=== PATIENT | female | born 1965 | race Caucasian/White ===

== ENCOUNTER 2016-07-18 14:42 | Observation (INO) | payer OTHER ==
[2016-07-18] MEDS ORDERED: KETOROLAC TROMETHAMINE 30 MG/ML VIAL IV ONE (15:08)
[2016-07-18] MEDS ORDERED: diphenhydrAMINE HCL 50 MG/ML VIAL IV ONE (15:08)
[2016-07-18] MEDS ORDERED: METHYLPREDNISOLONE SOD SUCC/PF 40 MG/ML VIAL IV ONE (15:09)
[2016-07-18] MEDS ORDERED: NORMAL SALINE 1,000 ML IV ONE ×2 (15:11→16:47)
--- NOTE | 2016-07-18 15:11 | ERNOTE ---
Medical Problem HPI - Narrative Date of Service: 07/18/16 - General Chief Complaint: General Assessment Time Seen by Provider: 07/18/16 14:54 Source: patient Exam Limitations: no limitations - Immun/Allergies/Home Medications Immunizations: IMMUNIZATION HX Immunizations Up to Date Yes Allergies/Adverse Reactions: Allergies gabapentin Allergy (Verified 07/18/16 14:51) Home Medications: HOME MEDICATIONS HYDROcodone/ACETAMINOPHEN [[place] 5-325] 1 tab PO DAILY PRN 07/18/16 [Last Taken Unknown] Ibuprofen [Motrin] 800 mg PO TID PRN 07/18/16 [Last Taken Unknown] LORazepam [Ativan] 0.5 mg PO Q12H PRN 07/18/16 [Last Taken Unknown] Omeprazole 40 mg PO DAILY 07/18/16 [Last Taken Unknown] Oxycodone HCl [Oxycontin] 30 mg PO BID PRN 07/18/16 [Last Taken Unknown] Pregabalin [Lyrica] 100 mg PO TID 07/18/16 [Last Taken Unknown] Simvastatin [Zocor] 40 mg PO HS 07/18/16 [Last Taken Unknown] buPROPion HCL [Wellbutrin] 300 mg PO DAILY 07/18/16 [Last Taken Unknown] traZODone HCL [Desyrel] 100 mg PO HS PRN 07/18/16 [Last Taken Unknown] - History of Present History Narrative: Pt presents to the ED with c/o drowsiness and face feels hot. Pt states she took her Oxycontin this morning due to pain and that feels like a MS flareup. Pt states she had one 6 months ago and it feels similar; however, this time she has a headache with it. Pt rates headache 7/10. Pt states light and noise aggravate her headache. Pt denies any relieviating factors. Pt states this started this morning. Pt also states she has blurred vision. Date (Duration): 07/18/16 Timing: constant Severity: mild Review of Systems - Review of Systems Constitutional: Present: weakness. Absent: recent illness, fever, chills, decreased activity level EYE: Present: blurred vision, vision changes. Absent: eye pain ENT: Present: no symptoms reported. Absent: ear pain, nose congestion, nasal drainage, sore throat Respiratory: Present: no symptoms reported. Absent: shortness of breath, cough , wheezing Cardiology: Present: no symptoms reported. Absent: chest pain, palpitations Gastrointestinal/Abdominal: Present: no symptoms reported. Absent: nausea, vomiting, diarrhea, constipation, abdominal pain Genitourinary: Absent: no symptoms reported, frequency, pain Musculoskeletal: Present: other - generalized pain Skin: Present: no symptoms reported. Absent: rash, change in color Neurological: Present: headache - rates pain 7/10, weakness, numbness, tingling - numbness and tingling in arms which is normal for patient. Absent: dizziness/ light-headedness, seizure Endocrine: Present: no symptoms reported. Absent: excessive sweating, flushing , intolerance to heat, intolerance to cold Hematologic/Lymphatic: Present: no symptoms reported. Absent: easy bruising, easy bleeding Psych: Absent: anxiety, depressed All Other Systems: All systems neg except as marked - Patient's Past Medical History Patient History - Medical: Chronic Pain, Fibromyalgia, Other Patient History - Cardiac/Respiratory: Hyperlipidemia Patient History - Cancer: No Hx of Cancer Patient History - Surgical Procedures: Back Surgery, Hysterectomy, Other - Social History Smoking Status: Current every day smoker Have you smoked in the past 12 months: Yes - Immunizations Immunizations Up to Date: Yes Physical Exam - Physical Exam General Appearance: Present: no apparent distress, sleeping/easy to arouse. Absent: alert Eye Exam: Normal inspection: bilateral, PERRL: bilateral, EOMI: bilateral Ears, Nose, Throat: Present: normal ENT inspection. Absent: hearing decreased, nasal congestion, sinus pain/drainage Neck: Present: normal inspection, nontender, supple, full range of motion. Absent: limited range of motion Respiratory: Present: no respiratory distress, normal breath sounds, no accessory muscle use, chest nontender, lungs clear. Absent: crackles, rhonchi, stridor, wheezing Cardiovascular/Chest: Present: regular rate, rhythm, no murmur, normal peripheral pulses. Absent: tachycardia, bradycardia, irregularly irregular Gastrointestinal/Abdominal: Present: normal bowel sounds, nontender, nondistended, soft, no organomegaly. Absent: distended, guarding Back Exam: Present: normal inspection, normal range of motion Extremity Exam: Present: normal inspection, non-tender, normal range of motion, no edema Neurological Exam: Present: oriented, normal mood/affect, no motor/sensory deficits, other - lethargic Skin Exam: Present: normal color, warm/dry. Absent: skin rash Lymphatic Exam: Present: no adenopathy ED Progress - Date and Time Seen: Date and Time: 07/18/16 19:[address] Bolanos and we will admit here and he will have dr og follow up tomorrow but will give our hospitalist orders tonight. Discussed with Dr Greene and she accepts admission of pt. Gave report to [facility] for transfer of care. - Vital Signs Patient's Vital Signs:: I have reviewed the patient's vital signs. Vital Signs: Vital Signs 07/18/16 14:46 Temperature 36.5 C Pulse Rate 72 Respiratory 14 Rate Blood Pressure 114/67 O2 Sat by Pulse 98 Oximetry - EKG EKG: NSR, other - IVCD EKG read: Interp. by me EKG Comments: no acute - Progress/Reassessment Chief Complaint: General Assessment Departure - Departure Clinical Impression: Exacerbation of multiple sclerosis Disposition: [facility] Condition: Serious
--- OUTSIDE RECORDS SUMMARY | 2016-07-18 15:14 | XMS REPORT | Continuity of Care Document ---
:1965 Author Organization [facility] ([facility]) Address [address] [place] [address] Phone [phone] Care Team Providers Name Role Phone Sathish Connolly Primary Care Provider [phone] Source Comments This disclosure is being made pursuant to the Care Everywhere program, applicable federal and state laws, and may not contain all informaitonavailable regarding this patient.[facility] ([facility]) Active Allergies and Adverse Reactions No Known Allergies Current Medications Prescription Sig. Disp. Refills Start Date End Date Status HYDROCODONE Take 1 Tab by Active BIT/ACETAMINOPHEN (VICODIN mouth 3 times PO) daily. ibuprofen 800 mg tablet Take 800 mg by Active mouth 3 times daily. cyclobenzaprine 10 mg Take 10 mg by Active tablet mouth 3 times daily as needed. OMEPRAZOLE PO Take 20 mg by Active mouth daily. traZODone 150 mg tablet Take 150 mg by Active mouth at bedtime. citalopram 40 mg tablet Take 40 mg by Active mouth daily. Active Problems Problem Noted Date Neck pain 10/03/2012 Social History Tobacco Use Types Packs/Day Years Used Date Current Every Day Smoker 1 30 Alcohol Use Drinks/Week oz/Week Comments No Last Filed Vital Signs Vital Sign Reading Time Taken Blood Pressure 113/75 10/03/2012 1:24 PM CDT Pulse 76 10/03/2012 1:24 PM CDT Temperature 37.3 C (99.1 F) 10/03/2012 1:24 PM CDT Respiratory Rate - - Height 1.702 m (5' 7.01") 10/03/2012 1:24 PM CDT Weight 79.742 kg (175 lb 12.8 oz) 10/03/2012 1:24 PM CDT Body Mass Index 27.53 10/03/2012 1:24 PM CDT Oxygen Saturation - - Plan of Care Health Maintenance Due Date Last Done Comments Hepatitis B Vaccine (1 of 3 - Primary Series) 1965 Tdap Vaccine 1978 Lipid Disorder Screening 1985 MMR Vaccine 1985 Td Vaccine 1985 Pneumococcal Vaccine (1 of 1 - PPSV23) 1986 Cervical Cancer Screening 1997 Mammogram 2007 Influenza Vaccine: Seasonal (#1) 12/06/2015 Results from Last 3 Months Not on file
[2016-07-18] MEDS ORDERED: diphenhydrAMINE HCL 50 MG/ML VIAL ONE (15:22)
[2016-07-18] MEDS ORDERED: METHYLPREDNISOLONE SOD SUCC/PF 40 MG/ML VIAL ONE (15:23)
[2016-07-18] MEDS ORDERED: KETOROLAC TROMETHAMINE 30 MG/ML VIAL ONE (15:23)
[2016-07-18 15:35] LABS: Hematocrit 42.4 % (37.0-47.0); Hemoglobin 14.3 gm/dL (12.5-16.0); Mean Corpuscular Hemoglobin 30.4 pg (27-31); Mean Corpuscular Hgb Conc 33.7 g/dl (32-36); Mean Platelet Volume 10.2 fl (6.0-9.5); Neutrophil # 3.1 K/mm3 (1.3-6.0); Neutrophil % 44.3 % (42-75.0); Platelet Count 171 K/mm3 (150-450); Red Blood Count 4.71 M/mm3 (4.2-5.4)
[2016-07-18 15:40] LABS: ALT 13 U/L (19-67); AST 10 U/L (0-48); Albumin * 3.5 gm/dl (3.4-5.0); Alkaline Phosphatase * 89 U/L (50-170); Anion Gap 11.9 mmol/L (6.8-13.8); Bilirubin, Total 0.3 mg/dL (0.0-1.1); Blood Urea Nitrogen 5 mg/dL (3-23); Ca. Corrected For Albumin 8.5 mg/dL (8.4-10.2); Calcium * 8.4 mg/dL (7.9-10.9); Chloride 104 mmol/L (97-106); Glucose * 133 mg/dL (70-110); Potassium 2.9 mmol/L (3.4-4.6); Sodium 143 mmol/L (132-142)
[2016-07-18] MEDS ORDERED: POTASSIUM CHLORIDE 20 MEQ TABLET.SA PO ONE (15:46)
[2016-07-18 15:53] LABS: Urine Bilirubin Negative (NEGATIVE); Urine Ketone Negative (NEGATIVE); Urine Nitrite Negative (NEGATIVE); Urine Protein Negative (NEGATIVE); Urine Specific Gravity 1.025 SP.GR. (1.005-1.010); Urine Urobilinogen Normal (NORMAL)
[2016-07-18 16:00] LABS: Urine Appearance Clear; Urine Blood 10 /ul (NEGATIVE); Urine Color Yellow
[2016-07-18 16:01] LABS: Urine Bacteria None Seen; Urine RBC None Seen /hpf (0-5); Urine WBC 0-5 /hpf (0-5)
[2016-07-18 16:01] LABS: Phosphorus 3.6 mg/dL (2.2-4.2)
[2016-07-18] MEDS ORDERED: POTASSIUM CHLORIDE 20 MEQ TABLET.SA ONE (16:10)
[2016-07-18] MEDS: POTASSIUM CHLORIDE 100 ML IV SCH ×2 (16:15→17:13)
[2016-07-18] MEDS ORDERED: HYDROCORTISONE SOD SUCCINATE 50 MG/ML VIAL IV ONE (16:47)
[2016-07-18] MEDS ORDERED: HYDROCORTISONE SOD SUCCINATE 50 MG/ML VIAL ONE (16:54)
--- OUTSIDE RECORDS SUMMARY | 2016-07-18 19:04 | XMS REPORT | Continuity of Care Document ---
:1965 Author Organization [facility] ([facility]) Address [address] [place] [address] Phone [phone] Care Team Providers Name Role Phone Sathish Connolly Primary Care Provider [phone] Source Comments This disclosure is being made pursuant to the Care Everywhere program, applicable federal and state laws, and may not contain all informaitonavailable regarding this patient.[facility] ([facility]) Active Allergies and Adverse Reactions No Known [...]
[2016-07-18] MEDS ORDERED: LORazepam 0.5 MG TABLET PO PRN (21:43)
[2016-07-18] MEDS ORDERED: traZODone HCL 50 MG TABLET PO PRN (21:43)
--- NOTE | 2016-07-18 23:01 | HP ---
Chief Complaint - Chief Complaint Date of Service: 07/18/16 Time of Service: 19:30 Chief Complaint: Fatigue and headache History of Present Illness: 51 years old female adm to the hospital from ER with reports of increased fatigue and headache. pt stated for the past 2-4 days she have been feeling increased fatigue than usual and think its an MS flare. She had similar s/s when she had her last flare a year ago. She has stopped taking Tecfidera for the past 3 months and have been waiting to pre-approved by insurance for a new medications. However, she has been taking home medications for her chronic pain consistently. In ER pt was bradycardic and hypotensive likely due to excessive narcotic use vs MS flare. Case discussed with pt neurologist Dr Bolanos, who initiated solumedrol 500mg IV Q day and repeat MRI tomorrow. PMH significant for Multiple Sclerosis, smoker, spinal stenosis anxiety and fibromyalgia. On adm pt denies plans to hurt self or other, no tingling, no numbness, muscle stiffness, bowel or bladder problems. Plan of care discussed with pt she verbalized understanding and agrees. - Patient's Past Medical History Patient History - Medical: Anxiety, Chronic Pain, Fibromyalgia, Other - spinal stenosis Patient History - Cardiac/Respiratory: Hyperlipidemia, Other - smoker Patient History - Cancer: No Hx of Cancer Patient History - Surgical Procedures: Back Surgery, Hysterectomy, Other - spinal fusion - Social History Living Situations: alone Abuse History: No History of abuse Psych History: Hx of Anxiety, Hx of Depression Smoking Status: Current every day smoker Cigarettes Packs Per Day: 1 - pack Have you smoked in the past 12 months: Yes Do you dip or chew tobacco: No Patient requests Smoking Cessation Consult: Yes Initiate information on Smoking Cessation: Yes Alcohol Use: none Drug Use: none - Immunizations Immunizations Up to Date: Yes Review Of Systems (GEN) - Review of Systems Generalized/Overall Review: Present: Fatigue EENTM: Present: No Symptoms Reported Respiratory: Present: Cough Cardiac: Present: No Symptoms Reported Abdominal: Present: No Symptoms Reported Genitourinary: Present: No Symptoms Reported Musculoskeletal: Present: Joint Pain Neurological: Present: Anxiety, Weakness Skin: Present: No Symptoms Reported Endocrine: Present: No Symptoms Reported Immunizations: IMMUNIZATION HX Immunizations Up to Date Yes Allergies/Adverse Reactions: Allergies Allergy/AdvReac Type Severity Reaction Status Date / Time gabapentin Allergy Verified 07/18/16 20:40 Home Medications: HOME MEDICATIONS HYDROcodone/ACETAMINOPHEN [[place] 5-325] 1 tab PO DAILY PRN 07/18/16 [Last Taken Unknown] Ibuprofen [Motrin] 800 mg PO TID PRN 07/18/16 [Last Taken Unknown] LORazepam [Ativan] 0.5 mg PO Q12H PRN 07/18/16 [Last Taken Unknown] Omeprazole 40 mg PO DAILY 07/18/16 [Last Taken Unknown] Oxycodone HCl [Oxycontin] 30 mg PO BID PRN 07/18/16 [Last Taken Unknown] Pregabalin [Lyrica] 100 mg PO TID 07/18/16 [Last Taken Unknown] Simvastatin [Zocor] 40 mg PO HS 07/18/16 [Last Taken Unknown] buPROPion HCL [Wellbutrin] 300 mg PO DAILY 07/18/16 [Last Taken Unknown] traZODone HCL [Desyrel] 100 mg PO HS PRN 07/18/16 [Last Taken Unknown] Exam - Exam Vital Signs: Vital Signs - Last Taken Temp 36.6 C 07/18/16 20:22 Pulse 62 07/18/16 20:22 Resp 20 07/18/16 20:22 BP 117/65 07/18/16 20:22 Pulse Ox 97 07/18/16 20:22 Constitutional: Present: Alert, Oriented x3, Cooperative, Well developed, No distress, Young, Looks Older than stated age ENT Exam: Present: moist mucous membranes Eye Exam: bilateral eye: PERRL Neck: Present: full range of motion Back Exam: Present: normal inspection Breasts: Present: Exam deferred Respiratory: Present: chest non-tender, no respiratory distress, no accessory muscle use, decreased breath sounds Cardiovascular/Chest: Present: normal peripheral pulses, regular rate, rhythm, no chest tenderness, no edema, no gallop Peripheral Pulses: dorsalis-pedis (R): 3+, dorsalis-pedis (L): 3+ Abdomen: Present: Normal bowel sounds, soft, nontender, nondistended, no rebound tenderness /Rectal: Present: Exam deferred Extremity: Present: normal range of motion, non-tender, normal inspection, no calf tenderness Skin Exam: Present: normal color, warm/dry, no cyanosis Neurologic: Present: oriented x 3 Appearance: Present: appropriate insight Eye contact: Present: cooperative, good eye contact Thoughts: Present: normal thought pattern Diagnostic Studies: Laboratory Results WBC 7.0 K/mm3 (4.0-10.5) 07/18/16 15:18 RBC 4.71 M/mm3 (4.2-5.4) 07/18/16 15:18 Hgb 14.3 gm/dL (12.5-16.0) 07/18/16 15:18 Hct 42.4 % (37.0-47.0) 07/18/16 15:18 MCV 90.0 fl (78-100) 07/18/16 15:18 MCH 30.4 pg (27-31) 07/18/16 15:18 MCHC 33.7 g/dl (32-36) 07/18/16 15:18 RDW 13.0 % (11.5-14.0) 07/18/16 15:18 Plt Count 171 K/mm3 (150-450) 07/18/16 15:18 MPV 10.2 fl (6.0-9.5) H 07/18/16 15:18 Immature Gran % (Auto) 0.10 % (0.001-0.429) 07/18/16 15:18 Immature Gran # (Auto) 0.01 K/mm3 (0.000-0.0310) 07/18/16 15:18 Neutrophils % 44.3 % (42-75.0) 07/18/16 15:18 Lymphocytes % 45.9 % (20-51) 07/18/16 15:18 Monocytes % 6.1 % (0.0-9) 07/18/16 15:18 Eosinophils % 2.6 % (0.0-3.0) 07/18/16 15:18 Basophils % 1.0 % (0.0-1.0) 07/18/16 15:18 Nucleated RBC % 0.0 k/mm3 (0-1) 07/18/16 15:18 Neutrophils # 3.1 K/mm3 (1.3-6.0) 07/18/16 15:18 Lymphocytes # 3.2 k/mm3 (1.5-3.5) 07/18/16 15:18 Monocytes # 0.4 k/mm3 (0.0-1.0) 07/18/16 15:18 Eosinophils # 0.2 k/mm3 (0.0-0.7) 07/18/16 15:18 Absolute Basophils 0.1 k/mm3 (0.0-0.1) 07/18/16 15:18 ESR 14 mm/hr (0-15) 07/18/16 15:18 Sodium 143 mmol/L (132-142) H 07/18/16 15:18 Plasma Sodium 144 mmol/L (130-142) H 07/18/16 15:18 Potassium 2.9 mmol/L (3.4-4.6) L 07/18/16 15:18 Chloride 104 mmol/L (97-106) 07/18/16 15:18 Carbon Dioxide 30.0 mmol/L (24-32.6) 07/18/16 15:18 Anion Gap 11.9 mmol/L (6.8-13.8) 07/18/16 15:18 BUN 5 mg/dL (3-23) 07/18/16 15:18 Creatinine 0.84 mg/dL (0.4-1.4) 07/18/16 15:18 Est GFR (Non-Af Amer) 77 mL/min (60-130) 07/18/16 15:18 BUN/Creatinine Ratio 6.0 (9.0-21.6) L 07/18/16 15:18 Random Glucose 133 mg/dL (70-110) H 07/18/16 15:18 Calcium 8.4 mg/dL (7.9-10.9) 07/18/16 15:18 Calcium Adj for Albumin 8.5 mg/dL (8.4-10.2) 07/18/16 15:18 Phosphorus 3.6 mg/dL (2.2-4.2) 07/18/16 15:18 Magnesium 2.0 mg/dL (1.2-2.8) 07/18/16 15:18 Total Bilirubin 0.3 mg/dL (0.0-1.1) 07/18/16 15:18 AST 10 U/L (0-48) 07/18/16 15:18 ALT 13 U/L (19-67) L 07/18/16 15:18 Alkaline Phosphatase 89 U/L (50-170) 07/18/16 15:18 C-Reactive Prot, Quant Less than 0.2 mg/dL (0.0-0.9) 07/18/16 15:18 Total Protein 7.0 gm/dL (6.2-8.2) 07/18/16 15:18 Albumin 3.5 gm/dl (3.4-5.0) 07/18/16 15:18 Urine Color Yellow 07/18/16 15:47 Urine Appearance Clear 07/18/16 15:47 Urine pH 6.0 pH (5.0-7.0) 07/18/16 15:47 Ur Specific [place] 1.025 SP.GR. (1.005-1.010) 07/18/16 15:47 Urine Protein Negative mg/dL (NEGATIVE) 07/18/16 15:47 Urine Glucose (UA) Negative mg/dL (NEGATIVE) 07/18/16 15:47 Urine Ketones Negative mg/dL (NEGATIVE) 07/18/16 15:47 Urine Blood 10 /ul (NEGATIVE) H 07/18/16 15:47 Urine Nitrate Negative (NEGATIVE) 07/18/16 15:47 Urine Bilirubin Negative mg/dl (NEGATIVE) 07/18/16 15:47 Urine Urobilinogen Normal EU/dl (NORMAL) 07/18/16 15:47 Ur Leukocyte Esterase Negative /ul (NEGATIVE) 07/18/16 15:47 Urine RBC None seen /hpf (0-5) 07/18/16 15:47 Urine WBC 0-5 /hpf (0-5) 07/18/16 15:47 Ur Epithelial Cells 0-5 /hpf (0-5) 07/18/16 15:47 Urine Bacteria None seen (NONE) 07/18/16 15:47 Urine Culture Comments No culture indicated 07/18/16 15:47 Influenza Type A Ag Negative (NEGATIVE) 07/18/16 16:56 Influenza Type B Ag Negative (NEGATIVE) 07/18/16 16:56 Assessment/Plan - Narrative Narrative: MS exacerbation vs Narcotic use pt was constantly over using norcotic while at home and had stopped her Tecfidera 3 months ago Hold pain medications while pt narcoletic MRI brain and spinal cord pending solumedrol 80mg x1 was given in ER and may start solumedrol 500mg Q day x3 doses begin tomorrow. Pt to follow up with Dr Bolanos or Dr Davila for out-pt management and resuming MS medications. Consult neuro PT/OT for increased weaknes Hypokalemia Supplemented in ER monitor CMP in am Fibromyalgia- chronic Hold Norcotic resume motrin tonight Substance abuse- chronic smoking cessation Nicotine patch Anxiety- chronic May resume home medication Pt stated she sometimes feel like hurting herself because of her disease. she denies any current or future plans to hurt self or others. Code status: DNR VTE ppx : SCD and ambulate with therapy GI ppx: protonix Anticipate discharge 1-4 days and follow up with PCP and neuro Time 40 minutes - Assessment/Plan (1) Exacerbation of multiple sclerosis Problem: Chronic (2) Anxiety Problem: Chronic (3) Fibromyalgia Problem: Chronic
[2016-07-18] MEDS: PREGABALIN 50 MG CAPSULE PO SCH (23:03)
[2016-07-19] MEDS: SIMVASTATIN 40 MG TABLET PO SCH ×2 (00:40→20:48)
[2016-07-19] MEDS: PANTOPRAZOLE SODIUM 40 MG TABLET.EC PO SCH ×2 (00:40→20:48)
[2016-07-19] MEDS: buPROPion HCL 150 MG TAB.SR.24H PO SCH ×2 (00:40→20:48)
[2016-07-19] MEDS: IBUPROFEN 800 MG TABLET PO PRN ×2 (00:43→13:02)
[2016-07-19] MEDS ORDERED: PANTOPRAZOLE SODIUM 40 MG TABLET.EC PO SCH (07:00)
[2016-07-19 07:25] LABS: Albumin * 3.5 gm/dl (3.4-5.0); Anion Gap 12.8 mmol/L (6.8-13.8); BUN/Creatinine Ratio 9.9 (9.0-21.6); Bilirubin, Total 0.4 mg/dL (0.0-1.1); Ca. Corrected For Albumin 9.6 mg/dL (8.4-10.2); Calcium * 9.5 mg/dL (7.9-10.9); Carbon Dioxide 26.9 mmol/L (24-32.6); Potassium 3.7 mmol/L (3.4-4.6); Total Protein 7.2 gm/dL (6.2-8.2)
[2016-07-19] MEDS: METHYLPREDNISOLONE SOD SUCC IV SCH (08:59)
[2016-07-19] MEDS: PREGABALIN 50 MG CAPSULE PO SCH ×3 (08:59→16:33)
[2016-07-19] MEDS: NORMAL SALINE IV SCH (08:59)
[2016-07-19] MEDS ORDERED: HYDROcodone/ACETAMINOPHEN 1 EACH TABLET PO PRN (12:41)
--- NOTE | 2016-07-19 21:49 | PN ---
Subjective - Date and Time Seen Date: 07/19/16 Time: 20:00 Subjective Narrative: patient seen today AOX3 and appear sad, pt stated her dose of wellbutrin was recently increased and tolerating well. She denies new s/s since adm. Objective - Review of Systems Generalized/Overall Review: Reports: Weakness EENTM: Reports: No Symptoms Reported Respiratory: Reports: No Symptoms Reported Cardiac: Reports: No Symptoms Reported Abdominal: Reports: No Symptoms Reported Genitourinary Symptoms: Reports: No Symptoms Reported Musculoskeletal Complaints: Reports: Back Pain - chronic Neurological: Reports: No Symptoms Reported Skin: Reports: No Symptoms Reported Endocrine: Reports: No Symptoms Reported - Vitals Vitals: Last Vital Signs Temp 36.8 C 07/19/16 19:17 Pulse 46 L 07/19/16 19:17 Resp 16 07/19/16 19:17 BP 119/58 07/19/16 19:17 Pulse Ox 99 07/19/16 19:17 - Abnormal Lab Findings Abnormal Lab Findings: Abnormal Lab Results 07/19/16 Range/Units 06:30 Sodium 143 H (132-142) mmol/L Plasma Sodium 145 H (130-142) mmol/L Chloride 107 H (97-106) mmol/L Random Glucose 209 H D (70-110) mg/dL ALT 15 L (19-67) U/L - Exam Constitutional: Present: Alert, Oriented x3, Cooperative, No distress ENT Exam: Present: moist mucous membranes Neck: Present: full range of motion Breasts: Present: Exam deferred Respiratory: Present: chest non-tender, lungs clear, normal breath sounds, no respiratory distress Cardiovascular/Chest: Present: normal peripheral pulses, regular rate, rhythm, no chest tenderness, no edema Abdomen: Present: Normal bowel sounds, soft, nontender, nondistended, no rebound tenderness /Rectal: Present: Exam deferred Extremity: Present: normal range of motion, non-tender, normal inspection, no pedal edema, no calf tenderness Skin Exam: Present: normal color, warm/dry, no cyanosis Neurologic: Present: oriented x 3 Appearance: Present: appropriate appearance Eye contact: Present: cooperative Thoughts: Present: normal thought pattern Assessment/Plan Plan Narrative: MS exacerbation vs Narcotic use pt was constantly over using norcotic while at home and had stopped her Tecfidera 3 months ago Oxycontin was resume for discomfort prior to mRI MRI brain and spinal cord : no new lesions. Neurologist following Continue with solumedrol 500mg Q day x3 doses total Pt to follow up with Dr Bolanos or Dr Davila for out-pt management and resuming MS medications. Consult neuro PT/OT for increased weakness Bradycardic- likely due to narcotic use Continue to monitor on telemetry pt asymptomatic Hypokalemia- resolved On adm 2.9---->3.7 Supplemented in ER monitor CMP in am Fibromyalgia- chronic Continue with Motrin Substance abuse- chronic smoking cessation Nicotine patch Anxiety and depression- chronic May resume home medication she denies any current or future plans to hurt self or others. her wellbutrin dose was recently increased Code status: DNR VTE ppx : SCD and ambulate with therapy GI ppx: protonix Anticipate discharge 1-2 days and follow up with PCP and neuro Time 20 minutes - Problems/Diagnosis (1) Exacerbation of multiple sclerosis Problem: Chronic (2) Anxiety Problem: Chronic (3) Fibromyalgia Problem: Chronic
[2016-07-20 06:27] LABS: Anion Gap 12.9 mmol/L (6.8-13.8); BUN/Creatinine Ratio 14.7 (9.0-21.6); Calcium * 8.8 mg/dL (7.9-10.9); Carbon Dioxide 25.7 mmol/L (24-32.6); Potassium 3.6 mmol/L (3.4-4.6)
[2016-07-20] MEDS ORDERED: NICOTINE 21 MG PATC TD SCH (07:00)
[2016-07-20] MEDS: INSULIN LISPRO 100 UNITS/ML VIAL SC SCH ×2 (07:17→12:02)
[2016-07-20] MEDS: PREGABALIN 50 MG CAPSULE PO SCH ×2 (09:30→12:05)
[2016-07-20] MEDS: NORMAL SALINE IV SCH (09:31)
[2016-07-20] MEDS: METHYLPREDNISOLONE SOD SUCC IV SCH (09:31)
[2016-07-20 11:02] VITALS: BP 128/60
--- NOTE | 2016-07-20 11:16 | DS ---
(1) Anxiety Diagnosis(s): Continue lorazepam 0.5 mg every 12 hours as needed. Consider referral to outpatient psychiatry or psychologist due to poorly controlled symptoms of anxiety and reported PTSD. Problem: Chronic (2) Exacerbation of multiple sclerosis Diagnosis(s): Mrs. Dyer was seen by neurologist, Dr. Davila, while inpatient. MRI of the brain was obtained on 07/19/2016 which did not show any active demyelinating lesions. Continue prednisone 10 mg 3 times daily for the next 5 days, then decrease to prednisone 10 mg twice daily for the next 5 days, then discontinue. She is awaiting arrival of medication from the specialty pharmacy for treatment of her multiple sclerosis. She is to take this to her neurologist when it arrives. She had discontinued use of her Tecfidera approximately 3 months ago. Problem: Acute (3) Fibromyalgia Diagnosis(s): Continue pregabalin 100 mg 3 times daily. Consider use of a different NSAID such as meloxicam or even naproxen for treatment of chronic pain. Consider physical therapy to help control symptoms of chronic pain. We would discourage use of long-acting opioids as she does have problems with bradycardia. Problem: Chronic Description of Stay: Mrs. Dyer's chronic pain medications were initially held. Her somnolence improved. She continues to have bradycardia, mainly overnight. Consider polysomnogram as an outpatient. Her anxiety and depressive symptoms seem poorly controlled. She may be referred back to her primary care provider, Dr. Connolly or to outpatient psychiatry for further management. MRI of the brain was obtained on 07/19/2016 which did not show any active demyelinating lesions. She received 2 doses of IV methylprednisolone 500 mg daily while inpatient. She will continue on a prednisone taper as recommended by neurology. She has follow-up with her neurologist which was previously scheduled. She is afebrile. Vital signs are stable. She will be discharged home with outpatient follow-up. Procedures Performed: see notes below List Procedures: MRI of the brain on 07/19/2016 Discharge Disposition: Home self care Disposition: Home self-care Condition: Good Discharge Activity: Activity as tolerated Discharge Diet: General/regular food Consultation Done:: Dr. Davila, [facility] Problem Oriented Discharge Instructions to Patient/Family: Multiple Sclerosis Additional Patient Instructions (free text): Continue prednisone 10 mg three times daily for the next 5 days. Then, decrease to prednisone 10 mg twice daily for an additional 5 days, then discontinue. Call your neurologist if you notice any increased weakness, impairment in speech or memory, numbness or tingling. Call Dr. Connolly if you notice T>100.5 F, N/V, abdominal pain. Stop smoking! Prescriptions (Any new or edited meds): predniSONE [Prednisone] 10 mg PO TID #25 tab Complete Home Medications List: Complete Home Medication List: HYDROcodone/ACETAMINOPHEN [[place] 5-325] 1 tab PO DAILY PRN 07/18/16 Ibuprofen [Motrin] 800 mg PO TID PRN 07/18/16 LORazepam [Ativan] 0.5 mg PO Q12H PRN 07/18/16 Omeprazole 40 mg PO DAILY 07/18/16 Oxycodone HCl [Oxycontin] 30 mg PO BID PRN 07/18/16 Pregabalin [Lyrica] 100 mg PO TID 07/18/16 Simvastatin [Zocor] 40 mg PO HS 07/18/16 buPROPion HCL [Wellbutrin] 300 mg PO DAILY 07/18/16 traZODone HCL [Desyrel] 100 mg PO HS PRN 07/18/16 predniSONE [Prednisone] 10 mg PO TID #25 tab 07/20/16
== END 2016-07-20 13:50 | disposition home or self-care (01) ==
LOC: ER 14:42 → UNDOADMIN 19:00 → MS 19:00 → INTOOBSV 19:13 → MS 19:13
PROVIDERS: ADMIT Internal Medicine; ATTEND Internal Medicine
DX: G35 Multiple sclerosis (principal); E78.5 Hyperlipidemia, unspecified; M79.7 Fibromyalgia; F17.200 Nicotine dependence, unspecified, uncomplicated; E87.6 Hypokalemia
CPT/HCPCS: 36415; 70553; 72110; 72158; 80048; 80053; 81001; 83735; 84100; 85025; 85652; 86140; 87400; 93005; 96365; 96375; 97162; 97165; 99284; G0378